=== PATIENT | male | born 1985 | race Two or more races ===

== ENCOUNTER 2021-02-03 17:26 | Emergency (ER) | payer OTHER ==
[~2021-02-03] VITALS: Ht 175.3 cm; Wt 120.0 kg
--- NOTE | 2021-02-03 19:35 | NUR ---
PT TO room, assumed care. c/o left foot and leg swelling
[2021-02-03] MEDS ORDERED: triamcinolone acetonide 40mg/ml inj IM ONE (20:45)
[2021-02-03] MEDS ORDERED: ibuprofen tablet 400 MG TABLET PO ONE (20:45)
[2021-02-03] MEDS ORDERED: colchicine 0.6mg tablet PO ONE (20:45)
[2021-02-03] MEDS ORDERED: FAMO-128 PO (20:52)
[2021-02-03] MEDS ORDERED: COLC0.6T72 PO (20:52)
[2021-02-03] MEDS ORDERED: INDO50CA96 PO (20:52)
[2021-02-03] MEDS ORDERED: LOPE2CAP PO (20:52)
--- NOTE | 2021-02-03 21:25 | NUR ---
AWAITING MEDS FROM PHARM.
[2021-02-03 21:31] VITALS: BP 134/71
== END 2021-02-03 21:34 | disposition home or self-care (01) ==
LOC: ER 17:27
DX: M10.9 Gout, unspecified (principal); F17.210 Nicotine dependence, cigarettes, uncomplicated; Z79.899 Other long term (current) drug therapy
CPT/HCPCS: 73630; 96372; 99283; J3301